=== PATIENT | female | born 1955 | race Caucasian/White ===

== ENCOUNTER 2017-11-19 18:46 | Inpatient (IN) ==
[2017-11-19] MEDS ORDERED: Potassium Citrate 10 MEQ TABLET.ER PO ONE (23:33)
[2017-11-19] MEDS ORDERED: Heparin 25,000 UNIT/500 ML D5W 25,000 UNIT/500 ML BAG IVC SCH (23:45)
[2017-11-19] MEDS ORDERED: Naloxone 0.4 MG/ML INJ IVP PRN (23:52)
[2017-11-19] MEDS ORDERED: Ondansetron ODT 4 MG TAB.RAPDIS SL PRN (23:52)
[2017-11-19] MEDS ORDERED: OXYCODONE Oral CONC 10 MG/0.5 ML ORAL.SYG SL PRN ×2 (23:52)
[2017-11-20] MEDS ORDERED: *HR* Promethazine 25 MG/ML VIAL IVP PRN (00:15)
[2017-11-20] MEDS ORDERED: 0.9 % Sodium Chloride w KCl 40 MEQ/1,000 ML MLS IVC SCH (00:15)
[2017-11-20] MEDS ORDERED: clonazePAM 1 MG TABLET PO SCH (00:16)
[2017-11-20] MEDS ORDERED: *HR* HYDROcodone/Acet 7.5/325 mg TABLET PO PRN (00:16)
--- NOTE | 2017-11-20 00:27 | Internal Med History&Physical ---
<Demarco Waite R - Last Filed: 11/20/17 00:19> Date of Encounter: 11/20/17 Time of Encounter: 23:25 Assessment and Plan (1) NSTEMI (non-ST elevated myocardial infarction) Current visit: Yes Status: Acute Initial troponin 1.21, repeat 1.04. Patient denies any chest pain. EKG shows normal sinus rhythm, heart rate 78, with inverted T waves in lead 3, aVF, V2-5, without ST elevation/depression ED physician called and discussed the case with cardiology Patient was given aspirin in the emergency department and started on a heparin drip We will continue heparin, aspirin, and repeat EKG in the morning. Echocardiogram. Check lipid panel Continue to trend troponin (2) Pneumonia Current visit: Yes Status: Acute Chest x-ray is concerning for patchy airspace disease in the left perihilar region Patient is afebrile, with no leukocytosis. Requiring supplemental oxygen, but she is not on home oxygen Suspect there is also a component of undiagnosed COPD with exacerbation/ bronchitis also contributing Will obtain strep pneumo, legionella, and respiratory infection panel We will treat with Levaquin 500 mg daily, duonebs, supplemental oxygen, and Solu -Medrol Qualifiers: Pneumonia type: due to unspecified organism Laterality: left Lung location: unspecified part of lung Qualified Code(s): J18.9 - Pneumonia, unspecified organism (3) Hypokalemia Current visit: Yes Status: Acute Potassium 3.0. We will give magnesium and potassium. Check magnesium level. (4) Pre-syncope Current visit: Yes Status: Acute Patient is had several falls over the past week, but denies passing out She does report hitting her head with one of these, with residual periorbital swelling around the left eye Etiology is likely related related to her infection/dyspnea, but cardiac etiology cannot be ruled out yet Unlikely neuro in nature, as the patient does not have any focal neuro deficits We will obtain a CT of the head, bilateral carotid ultrasound, and echo for further evaluation Will obtain orthostatic vitals We will have PT, OT, and speech evaluate the patient Nothing by mouth except medications for now as the patient is reporting some dysphagia (5) Falls Current visit: Yes Status: Acute PT and OT evaluation Qualifiers: Encounter type: initial encounter Qualified Code(s): W19.XXXA - Unspecified fall, initial encounter (6) DVT prophylaxis Current visit: Yes Status: Acute Patient is currently on a heparin drip for NSTEMI Internal Medicine - H&P: HPI Chief complaint: shortness of breath, dizzy Admitted From: Emergency Dept History of present illness: Ms. Hdz is a 62 year old female with past medical history of anxiety/ depression and chronic pain, presented to the emergency department with one- week history of shortness of breath dizziness. Associated symptoms include fatigue, chills, nasal congestion, and productive cough. Describes her dizziness as more a sensation of lightheadedness and unsteadiness on her feet. She states that with her shortness of breath and her dizziness are worse with exertion and standing. She does have a sick contact as her daughter was recently diagnosed with pneumonia. EMS was called to the hospital report that her oxygen saturation was 70% on room air, but her oxygen saturation improved to mid to upper 90s with 2-3L O2 supplementation. She does report 6 falls over this time period as well. She states that she did hit her head 6 days ago with one of these falls, and her daughter reports that she thinks she lost consciousness at that time. She has periorbital swelling now around her left eye. She did have some residual diplopia at that time, but this has since resolved. She also has some slurred speech and some dysphasia. She denies any focal weakness, numbness, or tingling. She denies fevers, change in vision, loss of sensation, chest pain, palpitations, nausea, vomiting, abdominal pain, diarrhea, constipation, hematochezia, melena, dysuria, hematuria, or leg pain/ swelling. Past Med Surg Social Fam HX - Past Medical History Medical history: arthritis, cancer, other Psychiatric history: anxiety, depression - Past Surgical History Surgical History: cancer surgery - Social History Smoking Status: Current every day smoker Smokeless Tobacco Status: No Alcohol use: none Drug use: none - Family History Mother Age: 88 Family Member Ethnicity: Non- Age at : 88 Hx Family Neuromuscular Disorders: Yes (macular degeneration) Father Age: 71 Living Status: Age at : 71 Hx Family Respiratory Disorders: Yes (mesothelioma, copd) Internal Medicine - H&P: Meds Citalopram [CeleXA] 20 mg PO DAILY 11/19/17 [History] Gabapentin [Neurontin] 600 mg PO TID 11/19/17 [History] HYDROcodone/Acet 7.5/325 mg [[place] 7.5-325 mg] 1 tab PO Q6HR PRN 11/19/17 [ History] Multivitamin with Iron [Multivitamins with Iron] 1 each PO DAILY 11/19/17 [ History] Tizanidine HCl [Zanaflex] 4 mg PO TID 11/19/17 [History] Trospium Chloride 20 mg PO BID 11/19/17 [History] clonazePAM [Klonopin] 2 mg PO TID 11/19/17 [History] 3 Allergy/AdvReac Type Severity Reaction Status Date / Time No Known Allergies Allergy Verified 11/19/17 15:05 All Systems PM: A 10-system review of systems was performed and is negative for pertinent findings except as documented above in the HPI. - Constitutional Vitals: Temp Pulse Resp BP Pulse Ox 98.1 F 88 19 160/94 100 11/19/17 23:04 11/19/17 23:04 11/19/17 23:04 11/19/17 23:04 11/19/17 23:04 General appearance: Present: A&O X 3, no acute distress, answers questions appropriately - Head Head exam: Present: atraumatic, normocephalic - Eye Eye exam: Present: EOMI, periorbital swelling (Around left eye), PERRL, conjuntiva pink, sclera anicteric Pupils: Present: PERRL - Neck Neck exam general surgery: Present: supple, trachea midline. Absent: lymphadenopathy - Respiratory Respiratory exam: Present: wheezes. Absent: accessory muscle use, CTAB, rales, rhonchi Additional comments: Coarse breath sounds bilaterally - Cardiovascular Cardiovascular exam: Present: RRR, +S1, +S2. Absent: diastolic murmur, systolic murmur - GI/Abdominal GI/Abdominal exam: Present: normal bowel sounds, soft, no peritoneal signs. Absent: distended, tenderness - Extremities Exam Extremities exam: Present: pedal edema (Mild pitting edema bilaterally), warm, radial pulses palpable and symmetrical. Absent: calf tenderness, cyanotic - Neurological Exam Neurological exam: Present: CN II-XII intact, oriented X3, no focal deficits. Absent: pronater drift, facial droop, speech deficit - Expanded Neurological Exam Patient oriented to: Present: person, place, time Speech: Present: slurred Cerebellar function: finger to nose: Normal Upper motor neuron: Jeffrey neglect: Normal, pronator drift: Normal Sensory exam: lower extremity light touch: Normal, upper extremity light touch: Normal Neuro motor strength exam: LUE: 5, RUE: 5, LLE: 5, RLE: 5 - Skin Skin exam: Present: dry, intact <Radha Giraldo - Last Filed: 11/20/17 01:00> Date of Encounter: 11/20/17 Internal Medicine - H&P: HPI History of present illness: Ms. Hdz is a 62 year old female All Systems PM: A 10-system review of systems was performed and is negative for pertinent findings except as documented above in the HPI. - Constitutional Vitals: Temp Pulse Resp BP Pulse Ox 98.1 F 88 19 160/94 100 11/19/17 23:04 11/19/17 23:04 11/19/17 23:04 11/19/17 23:04 11/19/17 23:04 Internal Med - H&P Results - Impressions ITS Impressions Head CT 11/20/17 23:55 IMPRESSION: No acute intracranial abnormality. Evidence of left facial trauma with left orbital floor fracture. Maxillofacial CT is recommended for further evaluation. D/ / Juan Sanchez MD / Juan Sanchez MD Interpreting Provider: Juan Sanchez MD - Attending Attestation I examined this patient and my medical decision-making was reviewed with the Resident Physician. I agree with the documented findings, disposition and treatment plan as described except to the extent set forth below. Patient is a 62-year-old female who presents as a transfer from [facility] ER with an STEMI, URI prodrome with possible pneumonia, acute onset of falls/ dizziness / syncopal episodes. Patient probably has undiagnosed COPD and smokes half a pack of cigarettes a day but uses no oxygen at baseline. Patient lives with daughter at home. In the past 1 week patient experienced URI type symptoms with fatigue, chills, congestion, shortness of breath and some productive cough. This was associated with acute onset of dizziness, falls, disequilibrium that coincided with the onset of URI syndrome. She has fallen 6 times in total with trauma to the head and bruises along the left thigh. On repeated questioning, she denies any chest pain but notes of some shortness of breath. She does not appear to have a cardiac history but had objective evidence on EKG and lab to suggest ischemia. Dtr reports that she herself was down with URI illness the week before her mother got sick. She does not appear to have regular follow-up with primary care doctor EKG personally reviewed with rate of 78, ST depression across anterior leads suggestive of ischemia. EXAMINATION: SINGLE VIEW OF THE CHEST 11/19/2017 3:38 pm COMPARISON: CT abdomen and pelvis 06/20/2012. HISTORY: ORDERING SYSTEM PROVIDED HISTORY: short of breath for 7 days Shortness of breath, hypoxia. Recent diagnosis of pneumonia. Dizziness and slurred speech. Symptoms for 7 days. FINDINGS: The heart size and mediastinal contours are within normal limits. Patchy consolidative opacity is present in the perihilar left lung. The costophrenic angles are preserved. XR/XR chest 1V portable IMPRESSION: Suspect patchy airspace disease in the left lung. General - AAO x 3 Psych - Appropriate affect/speech. No agitation Eyes - WILLIAM. Left eye bruise. No scleral icterus Heart - Sinus. RRR. S1 and S2 present. No added HS/murmurs appreciated. No elevated JVD appreciated. Lung - Decrease air entry b/l, No crackles. Scant wheezes appreciated GI - Soft, non-tender. No hepatosplenomegaly/ascites. BS+ - No CVA/suprapubic tenderness or palpable bladder distension Skin - Intact. No rash/petechiae/ecchymosis. Warm extremities MSK - Joints with normal ROM. No joint swellings A/P Acute bronchitis with viral prodrome POssible PNA - IV steroids, IV antibiotics, duonebs - send RVP, serologies Syncope/dizziness/falls with head trauma Suspect 2/2 to URI and possible PNA ?? - PT/OT - work up above Head trauma x 2 - check NC-CT head on heparin NSTEMI - continue heparin gtt - satellite ED discussed with cardiology to catr[place] in the a.m - trend trop - TTE - ASA - coreg Hypokalemia - correct RN concerned for poor swallowing - NPO for now - speech eval in the a.m
[2017-11-20] MEDS ORDERED: Ipratropium/Albuterol Neb 3 ML IH PRN (00:47)
[2017-11-20] MEDS ORDERED: *HR* LORazepam 0.5 MG TABLET PO PRN (01:34)
[2017-11-20] MEDS ORDERED: OXYCODONE Oral CONC 10 MG/0.5 ML ORAL.SYG SL PRN ×2 (01:34)
[2017-11-20 01:50] LABS: Hematocrit 39.2 % (35.3-44.9); Hemoglobin 12.7 g/dL (11.5-15.4); Mean Corpuscular HGB Conc 32.4 g/dL (31.6-35.5); Mean Corpuscular Hemoglobin 30.6 pg (28.0-33.3); Mean Corpuscular Volume 94.5 fL (83.0-100.0); Mean Platelet Volume 10.1 fL (9.4-12.4); Platelet Count 290 K/mcL (140-400); Red Blood Count 4.15 M/mcL (3.82-4.97); Red Cell Distribution Width 13.8 % (11.5-14.5)
[2017-11-20 02:08] LABS: BUN/Creatinine Ratio 29 (6-26); Blood Urea Nitrogen 18 mg/dL (8-23); Calcium 8.5 mg/dL (8.6-10.3); Carbon Dioxide 32 mEq/L (23-29); Chloride 102 mEq/L (98-107); Chol/HDL Ratio 5.5 (0-4.9); Cholesterol 122 mg/dL (< 200); Glucose 98 mg/dL (70-105); HDL Cholesterol 22 mg/dL (40-59); LDL Cholesterol,Calculated 77 mg/dL (0-99); Magnesium 1.7 mg/dL (1.6-2.6); Osmolality,Calculated 296 (280-300); Potassium 3.1 mEq/L (3.5-5.1); Sodium 142 mEq/L (136-145); Triglycerides 114 mg/dL (< 150); eGFR For African Americans > 60 (> 60); eGFR For Non-African Americans > 60 (> 60)
[2017-11-20 02:20] LABS: Thyroid Stimulating Hormone 1.611 mcIU/mL (0.340-5.600)
[2017-11-20 03:16] LABS: Adenovirus Not Detected (Not Detect); Bordetella Pertussis Not Detected (Not Detect); Chlamydophila pneumoniae Not Detected (Not Detect); Coronavirus 229E Not Detected (Not Detect); Coronavirus HKU1 Not Detected (Not Detect); Coronavirus NL63 Not Detected (Not Detect); Coronavirus OC43 Not Detected (Not Detect); Human Metapneumovirus Not Detected (Not Detect); Human Rhinovirus/Enterovirus Not Detected (Not Detect); Influenza A Subtype 2009 H1 Not Detected (Not Detect); Influenza A Untypeable Not Detected (Not Detect); Influenza B Not Detected (Not Detect); Mycoplasma pneumoniae Not Detected (Not Detect); Parainfluenza Virus 1 Not Detected (Not Detect); Parainfluenza Virus 2 Not Detected (Not Detect); Parainfluenza Virus 3 Not Detected (Not Detect); Parainfluenza Virus 4 Not Detected (Not Detect); Respiratory Syncytial Virus ***DETECTED*** (Not Detect)
[2017-11-20] MEDS ORDERED: *HR* Heparin 5,000 UNIT/ML VIAL IVP PRN ×2 (03:52)
[2017-11-20] MEDS ORDERED: Gabapentin 300 MG CAPSULE PO SCH (09:00)
[2017-11-20] MEDS ORDERED: Multivit/Ca/Min/Fe/FA 1 TAB TABLET PO SCH (09:00)
[2017-11-20] MEDS ORDERED: Aspirin 81 MG TAB.CHEW PO SCH (09:00)
[2017-11-20] MEDS ORDERED: MethylPREDNISolone 40 MG/ML VIAL IVP SCH (09:00)
[2017-11-20] MEDS ORDERED: Levofloxacin 500 MG/100 ML 500 MG/100 ML BAG IVPB SCH (09:00)
[2017-11-20 12:13] VITALS: BP 181/95
[2017-11-20] MEDS ORDERED: Piperacillin/Tazobactam 3.375 GM in 0.9 % Sodium Chloride Mini Bag 100 ML IVPB SCH (14:00)
--- NOTE | 2017-11-20 14:13 | Cardiology Consult Note ---
Date of Encounter: 11/20/17 Time of Encounter: 14:11 Assessment and Plan (1) NSTEMI (non-ST elevated myocardial infarction) Current Visit: Yes Status: Acute Elevated troponin - ? NSTEMI. Given RSV pneuomonia, myocarditis should be considered. Abnormal ECG noted, primarily T-wave inversions in the anterior and inferior leads. Patient does not describe chest discomfort. Risk factors include tobacco use. Examination demonstrates coarse rhonchi bilaterally. Probable undiagnosed COPD , possible RSV pneumonia noted. Given elevated troponin measurement and abnormal ECG, I would recommend a cardiac catheterization. Currently, however, patient industries coarse rhonchi bilaterally. Recommend IM optimize respiratory status. Plan for cardiac catheterization tomorrow if able, and thus needs to be performed sooner. Continue ACS therapy for now, including aspirin, statin, and BB therapy. Continue heparin drip for 24-48 hours. Will hold Plavix for now given orbital fracture. (2) Dyspnea Current Visit: No Status: Acute Multifactorial. I suspect largely related to COPD, RSV. Possible NSTEMI may be contributing as well. Continue to optimize pulmonary status from an IM standpoint. Qualifiers: Dyspnea type: shortness of breath Qualified Code(s): R06.02 - Shortness of breath; R06.00 - Dyspnea, unspecified; R06.01 - Orthopnea (3) Falls Current Visit: Yes Status: Acute Falls reported. As condition improves, check ortostatics. Monitor telemetry, BP. Qualifiers: Encounter type: initial encounter Qualified Code(s): W19.XXXA - Unspecified fall, initial encounter Discussion w patient/family: The assessment and plan as outlined above was discussed with the patient and/or family members who expressed understanding and agreement. All questions were answered. Thank you for involving us in the care of your patient. Please call with any questions. History of Present Illness Consult date: 11/20/17 Requesting physician: Filomena No Consult reason: Elevated troponin Chief complaint: Fall, elevated troponin History of present illness: Ms. Hdz was seen and examined earlier today. Patient is somewhat of a poor historian. When I can gather, she is a 62-year-old female who reports a one-week history of increasing dyspnea. She reports a sudden episode of lightheadedness last week, fell, left with a contusion around left eye. She is a long-time smoker. Per reports, patient was hypoxic en route to hospital, which improved with supplemental oxygen. She denies chest pain. Past Med Surg Social Fam HX - Past Medical History Medical history: arthritis, cancer, other Psychiatric history: anxiety, depression - Past Surgical History Surgical History: cancer surgery - Social History Smoking Status: Current every day smoker Smokeless Tobacco Status: No Alcohol use: none Drug use: none - Family History Mother Age: 88 Family Member Ethnicity: Non- Age at : 88 Hx Family Neuromuscular Disorders: Yes (macular degeneration) Father Age: 71 Living Status: Age at : 71 Hx Family Respiratory Disorders: Yes (mesothelioma, copd) Medications and Allergies Gabapentin [Neurontin] 600 mg PO TID 11/19/17 [History] HYDROcodone/Acet 7.5/325 mg [[place] 7.5-325 mg] 1 tab PO Q6HR PRN 11/19/17 [ History] Tizanidine HCl [Zanaflex] 4 mg PO TID 11/19/17 [History] Trospium Chloride 20 mg PO BID 11/19/17 [History] clonazePAM [Klonopin] 2 mg PO TID 11/19/17 [History] Albuterol Sulfate [Ventolin Hfa] 1 puff IH DAILY PRN 11/20/17 [History] Citalopram Hydrobromide [Citalopram HBr] 40 mg PO DAILY 11/20/17 [History] Lactobacillus Acidophilus [Acidophilus Lactobacillus] 1 cap PO DAILY 11/20/17 [ History] Palm-3 Fatty Acids [Fish Oil] 300 mg PO DAILY 11/20/17 [History] Vitamin B Complex [B Complex] 1 tab PO DAILY 11/20/17 [History] 3 Allergy/AdvReac Type Severity Reaction Status Date / Time No Known Allergies Allergy Verified 11/20/17 08:36 All Systems Review: The remainder of the systems were reviewed and are negative - Cardiovascular Cardiovascular: as per HPI - Respiratory Respiratory: cough, dyspnea, wheezing - Musculoskeletal Musculoskeletal: abnormal gait, other (Reports falls.) Physical Examination Vital Signs, Last 4 Hours Temp Pulse Resp BP Pulse Ox 11/20/17 12:12 98.7 F 89 20 181/95 94 General: Conversant, No Apparent Distress HEENT: Atraumatic, Mucus Membranes Moist, Other (Contusion around left eye.) Cardiac: Reg Rate and Rhythm, Other (Distant, appears regular. No auscultated murmurs.) Lungs: Other (Coarse breath sounds bilaterally. Mild wheezing noted.) Neuro: No focal deficits noted, Other (Somewhat lethargic. Poor historian.) Abdomen: Soft, Non-Tender Musculoskeletal: No Chest Wall Tenderness Extremities: No Clubbing, No Cyanosis, No Edema Results 11/20/17 01:33 11/20/17 01:33 Lab Results 11/20/17 11/20/17 11/20/17 01:33 01:33 02:23 WBC 10.5 Hgb 12.7 Hct 39.2 Plt Count 290 APTT 29.7 Sodium 142 Potassium 3.1 L Chloride 102 Carbon Dioxide 32 H BUN 18 Creatinine 0.62 Glucose 98 Calcium 8.5 L Magnesium 1.7 Troponin I 1.70 H* TSH 1.611 11/20/17 11/20/17 09:46 09:46 WBC Hgb Hct Plt Count APTT 61.2 H D Sodium Potassium Chloride Carbon Dioxide BUN Creatinine Glucose Calcium Magnesium Troponin I 1.32 H* TSH - EKG Interpretation EKG results cardiology: personally reviewed Consult Discharge Plan - Plan Referrals: Melissa Smith, KORIN [Primary Care Provider] - 11/26/17 1:40 pm
[2017-11-20] MEDS ORDERED: Metoprolol XL (24 HR) Succ 25 MG TAB.ER.24H PO SCH (14:30)
--- NOTE | 2017-11-20 15:01 | Discharge Summary ---
Orders not resulted at time of discharge: Pending orders 11/19/17 23:52 Urinalysis reflex Microscopic [URIN] Routine EV echocardiogram Routine 11/20/17 CT 3D reconstruction [CT] Routine 11/20/17 00:09 Legionella Antigen [RM] Routine S. Pneumoniae Antigen [RM] Routine EV carotid duplex imaging BI Routine 11/20/17 06:00 ECG 12 lead ECG [ECG] AM 0600 Date of Encounter: 11/20/17 Time of Encounter: 14:58 - Discharge Diagnosis (1) Orbital floor fracture Priority: Primary Status: Acute Qualifiers: Encounter type: initial encounter Fracture type: closed Laterality: left Qualified Code(s): S02.32XA - Fracture of orbital floor, left side, initial encounter for closed fracture (2) Maxillary sinus fracture Priority: Primary Status: Acute Qualifiers: Encounter type: initial encounter Fracture type: closed Qualified Code(s) : S02.401A - Maxillary fracture, unspecified side, initial encounter for closed fracture (3) Ischemic stroke Priority: Primary Status: Acute (4) Falls Priority: Primary Status: Acute Qualifiers: Encounter type: initial encounter Qualified Code(s): W19.XXXA - Unspecified fall, initial encounter (5) NSTEMI (non-ST elevated myocardial infarction) Priority: Primary Status: Acute (6) Pneumonia Priority: Primary Status: Acute Qualifiers: Pneumonia type: due to unspecified organism Laterality: left Lung location: unspecified part of lung Qualified Code(s): J18.9 - Pneumonia, unspecified organism (7) RSV infection Priority: Primary Status: Acute Hospital course: Ms. Hdz is a 62 year old female with past medical history of anxiety/ depression and chronic pain, presented to the emergency department with one- week history of shortness of breath dizziness. She reports falling on her face last Sunday night or . Associated symptoms include fatigue, chills, nasal congestion, and productive cough. Describes her dizziness as more a sensation of lightheadedness and unsteadiness on her feet. She states that with her shortness of breath and her dizziness are worse with exertion and standing. She does have a sick contact as her daughter was recently diagnosed with pneumonia. EMS was called to the hospital report that her oxygen saturation was 70% on room air, but her oxygen saturation improved to mid to upper 90s with 2-3L O2 supplementation. She does report 6 falls over this time period as well. She states that she did hit her head 6 days ago with one of these falls, and her daughter reports that she thinks she lost consciousness at that time. She has periorbital swelling now around her left eye. She did have some residual diplopia at that time, but this has since resolved. She also has some slurred speech and some dysphasia. She denies any focal weakness, numbness , or tingling. She denies fevers, change in vision, loss of sensation, chest pain, palpitations, nausea, vomiting, abdominal pain, diarrhea, constipation, hematochezia, melena, dysuria, hematuria, or leg pain/swelling. Facial CT was obtained and reveals a displaced left inferior orbital floor fracture. There is suspected entrapment of the left inferior rectus muscle. 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 Brain MRI reveals small punctate acute infarcts involving the cerebellar hemisphere bilaterally, the left medulla, as well as the left parietal lobe. Intraocular pressures of the left eye are 16 and 18 respectively. Patient does have extraocular movement, but has a pupillary defect. This is new according to family. Patient has elevated troponins with the last one being as high as 1.7. She has new T-wave inversions in leads 3, aVF, V3, V4, V5. Patient has been started on heparin drip via ACS protocol. She has also received aspirin. Cardiology recommends performance of stress test at this time. We are pending ultrasound of the carotids. Patient has been stable here, protecting her airway, mentating appropriately. I do not see suspected need for intubation at this time. Chest x-ray does not reveal any evidence of pneumothorax. She does however, have signs of possible pneumonia. She is being treated with Zosyn at this time. Patient also tested positive for RSV here. Due to the patient having the CT and MRI findings revealing orbital fracture as well as possible fracture of the lateral wall of the maxillary sinus, probably this patient is best served at a true trauma center. I have called the [place] transfer center and the emergency department will accept her for evaluation. [facility] was called as patient is at high risk for bleed with her new ischemic strokes, elevated blood pressure of 180/74. Lowering blood pressure at this time would raise concern for new ischemia. However, in the interim being that she is on low-dose heparin for her elevated troponin and ECG changes , recent trauma, patient is high risk for developing hemorrhage. We are currently awaiting ground transport as weather conditions would not allow flight. Plan was explained with patient and family at bedside. Patient and family agreed with the plan. Lab Results 11/20/17 11/20/17 11/20/17 Range/Units 01:33 01:33 01:33 WBC 10.5 (4.3-11.1) K/mcL RBC 4.15 (3.82-4.97) M/mcL Hgb 12.7 (11.5-15.4) g/dL Hct 39.2 (35.3-44.9) % MCV 94.5 (83.0-100.0) fL MCH 30.6 (28.0-33.3) pg MCHC 32.4 (31.6-35.5) g/dL RDW 13.8 (11.5-14.5) % Plt Count 290 (140-400) K/mcL MPV 10.1 (9.4-12.4) fL APTT (26.0-36.0) Seconds Sodium 142 (136-145) mEq/L Potassium 3.1 L (3.5-5.1) mEq/L Chloride 102 (98-107) mEq/L Carbon Dioxide 32 H (23-29) mEq/L BUN 18 (8-23) mg/dL Creatinine 0.62 (0.60-1.20) mg/dL Est GFR ( Amer) > 60 (> 60) Est GFR (Non-Af Amer) > 60 (> 60) BUN/Creatinine Ratio 29 H (6-26) Glucose 98 (70-105) mg/dL Calculated Osmolality 296 (280-300) Calcium 8.5 L (8.6-10.3) mg/dL Magnesium 1.7 (1.6-2.6) mg/dL Troponin I 1.70 H* (< 0.04) ng/mL Triglycerides 114 (< 150) mg/dL Cholesterol 122 (< 200) mg/dL LDL Cholesterol, Calc 77 (0-99) mg/dL VLDL Cholesterol, Calc 23 (< 31) mg/dL HDL Cholesterol 22 L (40-59) mg/dL Cholesterol/HDL Ratio 5.5 H (0-4.9) TSH 1.611 (0.340-5.600) mcIU/mL Chlamy pneumoniae PCR (Not Detect) Adenovirus (PCR) (Not Detect) B. pertussis DNA (PCR) (Not Detect) B.parapertussis DNA PCR (Not Detect) Coronavirus OC43 (PCR) (Not Detect) Coronavirus HKU1 (PCR) (Not Detect) Coronavirus 229E (PCR) (Not Detect) Coronavirus NL63 (PCR) (Not Detect) Human Metapneumovir PCR (Not Detect) Influenza A (H1) PCR (Not Detect) Influ A (H1N1/09) PCR (Not Detect) Influenza A (H3) PCR (Not Detect) Influenza A Untype (PCR) (Not Detect) Influenza Type B (PCR) (Not Detect) M.pneumoniae DNA (PCR) (Not Detect) Parainfluenza 1 (PCR) (Not Detect) Parainfluenza 2 (PCR) (Not Detect) Parainfluenza 3 (PCR) (Not Detect) Parainfluenza 4 (PCR) (Not Detect) RSV (PCR) (Not Detect) Entero/Rhino (PCR) (Not Detect) Specimen Rejected Clotted 11/20/17 11/20/17 11/20/17 Range/Units 02:23 09:46 09:46 WBC (4.3-11.1) K/mcL RBC (3.82-4.97) M/mcL Hgb (11.5-15.4) g/dL Hct (35.3-44.9) % MCV (83.0-100.0) fL MCH (28.0-33.3) pg MCHC (31.6-35.5) g/dL RDW (11.5-14.5) % Plt Count (140-400) K/mcL MPV (9.4-12.4) fL APTT 29.7 61.2 H D (26.0-36.0) Seconds Sodium (136-145) mEq/L Potassium (3.5-5.1) mEq/L Chloride (98-107) mEq/L Carbon Dioxide (23-29) mEq/L BUN (8-23) mg/dL Creatinine (0.60-1.20) mg/dL Est GFR ( Amer) (> 60) Est GFR (Non-Af Amer) (> 60) BUN/Creatinine Ratio (6-26) Glucose (70-105) mg/dL Calculated Osmolality (280-300) Calcium (8.6-10.3) mg/dL Magnesium (1.6-2.6) mg/dL Troponin I 1.32 H* (< 0.04) ng/mL Triglycerides (< 150) mg/dL Cholesterol (< 200) mg/dL LDL Cholesterol, Calc (0-99) mg/dL VLDL Cholesterol, Calc (< 31) mg/dL HDL Cholesterol (40-59) mg/dL Cholesterol/HDL Ratio (0-4.9) TSH (0.340-5.600) mcIU/mL Chlamy pneumoniae PCR (Not Detect) Adenovirus (PCR) (Not Detect) B. pertussis DNA (PCR) (Not Detect) B.parapertussis DNA PCR (Not Detect) Coronavirus OC43 (PCR) (Not Detect) Coronavirus HKU1 (PCR) (Not Detect) Coronavirus 229E (PCR) (Not Detect) Coronavirus NL63 (PCR) (Not Detect) Human Metapneumovir PCR (Not Detect) Influenza A (H1) PCR (Not Detect) Influ A (H1N1/09) PCR (Not Detect) Influenza A (H3) PCR (Not Detect) Influenza A Untype (PCR) (Not Detect) Influenza Type B (PCR) (Not Detect) M.pneumoniae DNA (PCR) (Not Detect) Parainfluenza 1 (PCR) (Not Detect) Parainfluenza 2 (PCR) (Not Detect) Parainfluenza 3 (PCR) (Not Detect) Parainfluenza 4 (PCR) (Not Detect) RSV (PCR) (Not Detect) Entero/Rhino (PCR) (Not Detect) Specimen Rejected 11/20/17 Range/Units Unknown WBC (4.3-11.1) K/mcL RBC (3.82-4.97) M/mcL Hgb (11.5-15.4) g/dL Hct (35.3-44.9) % MCV (83.0-100.0) fL MCH (28.0-33.3) pg MCHC (31.6-35.5) g/dL RDW (11.5-14.5) % Plt Count (140-400) K/mcL MPV (9.4-12.4) fL APTT (26.0-36.0) Seconds Sodium (136-145) mEq/L Potassium (3.5-5.1) mEq/L Chloride (98-107) mEq/L Carbon Dioxide (23-29) mEq/L BUN (8-23) mg/dL Creatinine (0.60-1.20) mg/dL Est GFR ( Amer) (> 60) Est GFR (Non-Af Amer) (> 60) BUN/Creatinine Ratio (6-26) Glucose (70-105) mg/dL Calculated Osmolality (280-300) Calcium (8.6-10.3) mg/dL Magnesium (1.6-2.6) mg/dL Troponin I (< 0.04) ng/mL Triglycerides (< 150) mg/dL Cholesterol (< 200) mg/dL LDL Cholesterol, Calc (0-99) mg/dL VLDL Cholesterol, Calc (< 31) mg/dL HDL Cholesterol (40-59) mg/dL Cholesterol/HDL Ratio (0-4.9) TSH (0.340-5.600) mcIU/mL Chlamy pneumoniae PCR Not Detected (Not Detect) Adenovirus (PCR) Not Detected (Not Detect) B. pertussis DNA (PCR) Not Detected (Not Detect) B.parapertussis DNA PCR Not Detected (Not Detect) Coronavirus OC43 (PCR) Not Detected (Not Detect) Coronavirus HKU1 (PCR) Not Detected (Not Detect) Coronavirus 229E (PCR) Not Detected (Not Detect) Coronavirus NL63 (PCR) Not Detected (Not Detect) Human Metapneumovir PCR Not Detected (Not Detect) Influenza A (H1) PCR Not Detected (Not Detect) Influ A (H1N1/09) PCR Not Detected (Not Detect) Influenza A (H3) PCR Not Detected (Not Detect) Influenza A Untype (PCR) Not Detected (Not Detect) Influenza Type B (PCR) Not Detected (Not Detect) M.pneumoniae DNA (PCR) Not Detected (Not Detect) Parainfluenza 1 (PCR) Not Detected (Not Detect) Parainfluenza 2 (PCR) Not Detected (Not Detect) Parainfluenza 3 (PCR) Not Detected (Not Detect) Parainfluenza 4 (PCR) Not Detected (Not Detect) RSV (PCR) DETECTED A (Not Detect) Entero/Rhino (PCR) Not Detected (Not Detect) Specimen Rejected Face CT 11/20/17 10:15 IMPRESSION: Displaced left inferior orbital floor fracture. There is suspected entrapment of the left inferior rectus muscle. 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 D/ / 11/20/2017 11:44:50 Marvel Schuster MD / corey Interpreting Provider: Marvel Schuster MD Videofluoroscopic Swallow 11/20/17 10:47 IMPRESSION: Deep penetration with both thin and nectar consistency contrast. Please see separate speech pathology report for full discussion of findings and recommendations. D/ / Brian Montanez MD / Brian Montanez MD Interpreting Provider: Brian Montanez MD Brain MRI 11/20/17 11:16 IMPRESSION: 1. There are small punctate acute infarcts involving the cerebellar hemispheres bilaterally, left greater than right, as well as the left medulla and left parietal lobe. No significant mass effect or midline shift. 2. Mild global parenchymal volume loss with chronic microvascular ischemic change. 3. Scattered sinusitis with an air-fluid level in the right maxillary sinus. 4. Fracture involving the left orbital floor with herniation of extraconal fat as well as the left inferior rectus muscle through the defect. These results were sent to the [facility] ([facility] on 11/20/2017 at 2:19 pm to be communicated to the referring/covering health care provider/office. D/ / Raymundo Dowling MD / Raymundo Dowling MD Interpreting Provider: Raymundo Dowling MD Orbit MRI 11/20/17 11:19 IMPRESSION: 1. There are small punctate acute infarcts involving the cerebellar hemispheres bilaterally, left greater than right, as well as the left medulla and left parietal lobe. No significant mass effect or midline shift. 2. Mild global parenchymal volume loss with chronic microvascular ischemic change. 3. Scattered sinusitis with an air-fluid level in the right maxillary sinus. 4. Fracture involving the left orbital floor with herniation of extraconal fat as well as the left inferior rectus muscle through the defect. These results were sent to the [facility] ([facility] on 11/20/2017 at 2:19 pm to be communicated to the referring/covering health care provider/office. D/ / Raymundo Dowling MD / Raymundo Dowling MD Interpreting Provider: Raymundo Dowling MD Head CT 11/20/17 23:55 IMPRESSION: No acute intracranial abnormality. Evidence of left facial trauma with left orbital floor fracture. Maxillofacial CT is recommended for further evaluation. D/ / Juan Sanchez MD / Juan Sanchez MD Interpreting Provider: Juan Sanchez MD - Time Spent with Patient Total time spent providing and/or coordinating discharge services: - Discharge Medications Home Medications: Gabapentin [Neurontin] 600 mg PO TID 11/19/17 [History] HYDROcodone/Acet 7.5/325 mg [[place] 7.5-325 mg] 1 tab PO Q6HR PRN 11/19/17 [ History] Tizanidine HCl [Zanaflex] 4 mg PO TID 11/19/17 [History] Trospium Chloride 20 mg PO BID 11/19/17 [History] clonazePAM [Klonopin] 2 mg PO TID 11/19/17 [History] Albuterol Sulfate [Ventolin Hfa] 1 puff IH DAILY PRN 11/20/17 [History] Citalopram Hydrobromide [Citalopram HBr] 40 mg PO DAILY 11/20/17 [History] Lactobacillus Acidophilus [Acidophilus Lactobacillus] 1 cap PO DAILY 11/20/17 [ History] Girard-3 Fatty Acids [Fish Oil] 300 mg PO DAILY 11/20/17 [History] Vitamin B Complex [B Complex] 1 tab PO DAILY 11/20/17 [History] Allergies/Adverse Reactions: 3 Allergy/AdvReac Type Severity Reaction Status Date / Time No Known Allergies Allergy Verified 11/20/17 08:36 Date of admission: 11/20/17 08:55 Primary care physician: Melissa Smith CNP Consults: 11/19/17 23:59 Consult to Occupational Therapy [CONS] Routine Comment: Evaluate, develop and implement POC Reason for Consult: Falls at home Does patient have active BEDREST order?: Yes Is patient medically & hemodynamically stable?: Yes Consult to Physical Therapy [CONS] Routine Comment: Evaluate, develop and implement POC Reason for Consult: Falls at home Does patient have active BEDREST order?: Yes Is patient medically & hemodynamically stable?: Yes 11/20/17 00:00 Consult to Speech Therapy [CONS] Routine Comment: Evaluate, develop and implement POC Reason for Consult: Difficulty swallowing Call Completed: No 11/20/17 08:12 Consult to Cardiology [CONS] Routine Comment: Consulting Provider: Cardiology Maribell Reason for Consult: Concern for NSTEMI. Reports some chest heaviness with walking. Elevated, dynamic trops, with T-wave inversion seen (no prior ECG to compare). Currently on heparin drip. Call Completed: Yes Consult to Physician [CONS] Routine Consulting Provider: Migel Schmitz Reason for Consult: Oribtal floor fracture with gas present. Concern for endophthalmitis and would appreciaye Call Completed: Yes - Constitutional Vitals: Temp Pulse Resp BP Pulse Ox 98.7 F 89 20 181/95 94 11/20/17 12:12 11/20/17 12:12 11/20/17 12:12 11/20/17 12:12 11/20/17 12:12 General appearance: Present: A&O X 3, no acute distress, answers questions appropriately - Head Additional comments: Left periorbital swelling and ecchymosis - Eye Eye exam: Present: EOMI, periorbital swelling, periorbital tenderness. Absent: conjunctival injection, scleral icterus Pupils: Present: irregular Additional comments: Left pupil nonreactive to light - ENT ENT exam: Present: mucous membranes moist - Neck Neck exam general surgery: Present: trachea midline - Respiratory Respiratory exam: Present: rhonchi (Left side) - Cardiovascular Cardiovascular exam: Present: RRR, +S1, +S2 - GI/Abdominal GI/Abdominal exam: Present: soft, no peritoneal signs. Absent: tenderness - Neurological Exam Neurological exam: Present: oriented X3, strengths equal and symetr throughout. Absent: facial droop, speech deficit Additional comments: Left pupil nonreactive to light, all other cranial nerves are intact - Patient Status Disposition: Transfer Short-Term Hosp Condition: Critical Overall status at discharge: other - Discharge Instructions Follow Up With: Melissa Smith CNP [Primary Care Provider] - 11/26/17 1:40 pm - Diet and Activity Activity: other (No activity at this time) Diet: other (Nothing by mouth at this time)
--- NOTE | 2017-11-21 06:42 | Electrocardiograph Report ---
[address] [place], [place] [address] Test Date: 2017-11-19 Pat Name: Vaishnavi Hdz Department: 110 Room: 2N04 Gender: F Cell Technician: TIAN : 1955 Requested By: Radha Giraldo Order Number: [id number] Reading MD: Fredi Cramer MD Measurements Intervals [place] Rate: 78 P: 49 CA: 125 QRS: 21 QRSD: 97 T: -20 QT: 440 QTc: 473 Interpretive Statements SINUS RHYTHM ANTEROLATERAL ISCHEMIA Electronically Signed On 11-21-2017 6:40:34 EDT by Fredi Cramer MD
== END 2017-11-20 16:02 | disposition short-term general hospital (02) | DRG 280 ==
LOC: 2NNU → SUATTDRO 22:42
PROVIDERS: ADMIT Internal Medicine; ATTEND Internal Medicine